=== PATIENT | female | born 1960 | race Two or more races ===

== ENCOUNTER 2018-01-28 07:28 | Day surgery (SDC) | payer BC | END 2018-01-28 10:04 | disposition home or self-care (01) | LOC: GIL 07:28 | DX: Z12.11 Encounter for screening for malignant neoplasm of colon (principal); Z86.010 Personal history of colon polyps; K64.8 Other hemorrhoids; Z80.0 Family history of malignant neoplasm of digestive organs; E03.9 Hypothyroidism, unspecified | CPT/HCPCS: 45378 ==